=== PATIENT | male | born 1945 | race African-American/Black ===

== ENCOUNTER 2021-06-15 20:12 | Emergency (ER) | payer OTHER ==
[~2021-06-15] VITALS: Ht 175.3 cm; Wt 77.1 kg
[2021-06-15] MEDS ORDERED: KETOROLAC TROMETH 60MG/2ML VIAL IM ONE (21:45)
[2021-06-15] MEDS ORDERED: HYDROcodone-ACET 10/325MG TAB PO ONE (21:45)
[2021-06-15] MEDS ORDERED: cloNIDine HCL 0.1 MG TAB PO ONE (22:00)
[2021-06-16 02:58] VITALS: BP 134/70
== END 2021-06-16 03:01 | disposition home or self-care (01) ==
LOC: EDBD 20:12 → ER 20:12
DX: M51.36 Other intervertebral disc degeneration, lumbar region (principal); G62.9 Polyneuropathy, unspecified; I10 Essential (primary) hypertension; E11.9 Type 2 diabetes mellitus without complications
CPT/HCPCS: 72100; 96372; 99283; J1885

== ENCOUNTER 2021-08-02 21:30 | Emergency (ER) | payer OTHER ==
[~2021-08-02] VITALS: Ht 175.3 cm; Wt 77.1 kg
[2021-08-02 21:58] VITALS: BP 129/71
[2021-08-04] MEDS ORDERED: DEXL30CA4 PO (12:37)
== END 2021-08-03 03:05 | disposition left against medical advice (07) ==
LOC: ER 21:30
DX: R20.2 Paresthesia of skin (principal); Z53.21 Procedure and treatment not carried out due to patient leaving prior to being seen by health care provider

== ENCOUNTER → 2021-08-04 | Emergency (ER) | payer OTHER ==
[~2021-08-04] VITALS: Ht 175.3 cm; Wt 77.1 kg
[~2021-08-04] MED LIST: ALUM & MAG HYDROX-SIMETH LIQ(MAALOX) 30 ML PO ONE; DEXL30CA4 PO; DONNATAL 5ml ORAL Elix (BELLADONNA ALK-PHENOBARB) PO ONE; FAMOTIDINE 20 MG TAB PO ONE; LIDOCAINE VISCOUS 2% 15ML UD PO ONE
[2021-08-04 11:21] LABS: Basophils # (auto) 0.1 10 ^3/uL (0-0.2); Eosinophils # (auto) 0.2 10 ^3/uL (0-0.8); Eosinophils % (auto) 1.8 % (0.0-7.0); Hematocrit 44.4 % (41.0-53.0); Hemoglobin 14.9 g/dL (13.5-17.5); Lymphocytes # (auto) 2.3 10 ^3/uL (0.4-5.4); Lymphocytes % (auto) 21.1 % (10.0-50.0); Mean Corpuscular Hemoglobin 30.5 pg (28.0-32.0); Mean Corpuscular Hgb Conc. 33.5 g/dL (32.0-36.0); Mean Corpuscular Volume 91.1 fL (80.0-100.0); Monocytes # (auto) 0.6 10 ^3/uL (0-1.3); Monocytes % (auto) 5.3 % (0.0-12.0); Neutrophils # (auto) 7.6 10 ^3/uL (1.6-8.6); Neutrophils % (auto) 70.8 % (37.0-80.0); Nucleated Red Blood Cells % 0.2 %; Red Blood Cells 4.88 10^6/uL (4.5-5.90); Red Cell Distribution Width 16.5 % (11.8-14.3); White Blood Cell 10.7 10^3/uL (4.4-10.8)
[2021-08-04 11:34] LABS: Albumin 4.1 g/dL (3.4-5.0); Calcium 8.9 mg/dL (8.5-10.1); Magnesium 2.8 mg/dL (1.6-2.6)
[2021-08-04 11:37] LABS: BUN/Creatinine Ratio 14.1; Bilirubin, Total 0.3 mg/dL (0.2-1.0); Total Protein 7.3 g/dL (6.4-8.2)
[2021-08-04 12:39] VITALS: BP 143/75
== END | disposition home or self-care (01) ==
LOC: ER 10:10
DX: K21.9 Gastro-esophageal reflux disease without esophagitis (principal); N28.1 Cyst of kidney, acquired; I10 Essential (primary) hypertension; E11.9 Type 2 diabetes mellitus without complications; E78.5 Hyperlipidemia, unspecified
CPT/HCPCS: 36415; 76705; 80053; 83690; 83735; 84484; 85025

== ENCOUNTER 2021-09-14 12:10 | Inpatient (IN) | payer OTHER ==
[~2021-09-14] VITALS: Ht 175.3 cm; Wt 65.2 kg
[~2021-09-14 12:10] MED LIST changes: -ALUM & MAG HYDROX-SIMETH LIQ(MAALOX) 30 ML PO ONE; -DONNATAL 5ml ORAL Elix (BELLADONNA ALK-PHENOBARB) PO ONE; -FAMOTIDINE 20 MG TAB PO ONE; -LIDOCAINE VISCOUS 2% 15ML UD PO ONE
[2021-09-14] MEDS ORDERED: MAGNESIUM CITRATE SOLUTION 300 ML BTL PO ONE (13:15)
[2021-09-14] MEDS ORDERED: FLEET ENEMA(ADULT) 135 ML PR ONE (13:15)
[2021-09-14 14:53] LABS: Basophils # (auto) 0.1 10 ^3/uL (0-0.2); Basophils % (auto) 0.7 % (0.0-2.0); Eosinophils # (auto) 0.1 10 ^3/uL (0-0.8); Eosinophils % (auto) 0.8 % (0.0-7.0); Hematocrit 43.7 % (41.0-53.0); Hemoglobin 14.3 g/dL (13.5-17.5); Lymphocytes # (auto) 2.3 10 ^3/uL (0.4-5.4); Lymphocytes % (auto) 28.9 % (10.0-50.0); Mean Corpuscular Hemoglobin 29.7 pg (28.0-32.0); Mean Corpuscular Hgb Conc. 32.7 g/dL (32.0-36.0); Mean Corpuscular Volume 90.6 fL (80.0-100.0); Monocytes # (auto) 0.5 10 ^3/uL (0-1.3); Monocytes % (auto) 5.7 % (0.0-12.0); Neutrophils # (auto) 5.2 10 ^3/uL (1.6-8.6); Neutrophils % (auto) 63.9 % (37.0-80.0); Nucleated Red Blood Cells % 0.1 %; Red Blood Cells 4.83 10^6/uL (4.5-5.90); Red Cell Distribution Width 15.8 % (11.8-14.3); White Blood Cell 8.1 10^3/uL (4.4-10.8)
[2021-09-14 15:10] LABS: Albumin 4.1 g/dL (3.4-5.0); Calcium 9.1 mg/dL (8.5-10.1); Potassium 3.9 mmol/L (3.5-5.1)
[2021-09-14 15:12] LABS: BUN/Creatinine Ratio 14.6; Bilirubin, Total 0.3 mg/dL (0.2-1.0); Total Protein 7.1 g/dL (6.4-8.2)
[2021-09-14] MEDS ORDERED: LACTULOSE 20Gm/30ML SOLN PO PRN (21:15)
[2021-09-14] MEDS ORDERED: ACETAMINOPHEN 325 MG TAB PO PRN (21:15)
[2021-09-14] MEDS ORDERED: DEXTROSE (50%) 50ML SYRG IV PRN (21:15)
[2021-09-14] MEDS ORDERED: HYDROcodone-ACET 5/325MG TAB PO PRN (21:15)
[2021-09-14] MEDS ORDERED: ONDANSETRON HCL 4 MG/2 ML VIAL IV PRN (21:15)
[2021-09-14] MEDS: InsuLIN REG 1unit/0.01ml Soln (100units/ml) SC SCH (22:00)
[2021-09-14] MEDS ORDERED: MORPHINE SULFATE INJ 2 MG/ml SYRG IV PRN (23:30)
[2021-09-14] MEDS ORDERED: NITROGLYCERIN 0.4 MG SL TAB SL PRN (23:30)
[2021-09-15 02:33] VITALS: BP 153/68
[2021-09-15] MEDS ORDERED: ATOR-47 PO (03:04)
[2021-09-15] MEDS ORDERED: DIPH25CA66 PO (03:04)
[2021-09-15] MEDS ORDERED: GABA-339 PO (03:04)
[2021-09-15] MEDS ORDERED: OME20T PO (03:04)
[2021-09-15] MEDS: ACCU-CHEK COMFORT CURVE STRIP VI SCH ×5 (03:17→21:10)
[2021-09-15] MEDS: SODIUM CHLOR 0.9% PF (SALINE LOCK) 10ML VIAL/SYR IV SCH ×4 (03:56→21:12)
[2021-09-15 05:00] VITALS: BP 151/82
[2021-09-15] MEDS: InsuLIN REG 1unit/0.01ml Soln (100units/ml) SC SCH ×4 (06:09→21:10)
[2021-09-15 08:20] VITALS: BP 131/69
[2021-09-15 09:40] LABS: Basophils # (auto) 0.1 10 ^3/uL (0-0.2); Basophils % (auto) 0.8 % (0.0-2.0); Eosinophils # (auto) 0.2 10 ^3/uL (0-0.8); Eosinophils % (auto) 2.4 % (0.0-7.0); Hematocrit 41.9 % (41.0-53.0); Lymphocytes # (auto) 2.4 10 ^3/uL (0.4-5.4); Lymphocytes % (auto) 28.8 % (10.0-50.0); Mean Corpuscular Hemoglobin 30.1 pg (28.0-32.0); Mean Corpuscular Hgb Conc. 33.4 g/dL (32.0-36.0); Mean Corpuscular Volume 89.9 fL (80.0-100.0); Monocytes # (auto) 0.6 10 ^3/uL (0-1.3); Monocytes % (auto) 6.8 % (0.0-12.0); Neutrophils # (auto) 5.1 10 ^3/uL (1.6-8.6); Neutrophils % (auto) 61.2 % (37.0-80.0); Nucleated Red Blood Cells % 0.1 %; Red Blood Cells 4.66 10^6/uL (4.5-5.90); Red Cell Distribution Width 15.9 % (11.8-14.3); White Blood Cell 8.3 10^3/uL (4.4-10.8)
[2021-09-15 09:52] LABS: Albumin 3.9 g/dL (3.4-5.0); Calcium 9.2 mg/dL (8.5-10.1); Potassium 3.7 mmol/L (3.5-5.1)
[2021-09-15 09:57] LABS: BUN/Creatinine Ratio 14.5; Bilirubin, Total 0.4 mg/dL (0.2-1.0); Total Protein 6.8 g/dL (6.4-8.2)
[2021-09-15] MEDS: FAMOTIDINE (10MG/ML) 2ML VL IV SCH ×3 (10:22→21:11)
[2021-09-15] MEDS: ENOXAPARIN SOD 40 MG/0.4 ML SYRINGE SC SCH (10:23)
[2021-09-15 12:20] VITALS: BP 159/77
[2021-09-15 16:20] VITALS: BP 150/71
[2021-09-15] MEDS: GABAPENTIN 300 MG CAP PO SCH ×2 (17:34→21:11)
[2021-09-15] MEDS ORDERED: ATORVASTATIN 20 MG TAB PO SCH (22:00)
[2021-09-15 23:13] VITALS: BP 129/66
[2021-09-16 05:30] VITALS: BP 133/71
[2021-09-16] MEDS: GABAPENTIN 300 MG CAP PO SCH (05:50)
[2021-09-16] MEDS: InsuLIN REG 1unit/0.01ml Soln (100units/ml) SC SCH (05:50)
[2021-09-16] MEDS: SODIUM CHLOR 0.9% PF (SALINE LOCK) 10ML VIAL/SYR IV SCH (05:50)
[2021-09-16] MEDS: ACCU-CHEK COMFORT CURVE STRIP VI SCH (05:51)
[2021-09-16 06:51] LABS: Basophils # (auto) 0.1 10 ^3/uL (0-0.2); Basophils % (auto) 0.8 % (0.0-2.0); Eosinophils # (auto) 0.4 10 ^3/uL (0-0.8); Eosinophils % (auto) 4.9 % (0.0-7.0); Hematocrit 39.1 % (41.0-53.0); Hemoglobin 13.1 g/dL (13.5-17.5); Lymphocytes # (auto) 3.4 10 ^3/uL (0.4-5.4); Lymphocytes % (auto) 43.5 % (10.0-50.0); Mean Corpuscular Hemoglobin 30.6 pg (28.0-32.0); Mean Corpuscular Hgb Conc. 33.4 g/dL (32.0-36.0); Mean Corpuscular Volume 91.4 fL (80.0-100.0); Monocytes # (auto) 0.6 10 ^3/uL (0-1.3); Monocytes % (auto) 7.7 % (0.0-12.0); Neutrophils # (auto) 3.3 10 ^3/uL (1.6-8.6); Neutrophils % (auto) 43.1 % (37.0-80.0); Red Blood Cells 4.28 10^6/uL (4.5-5.90); Red Cell Distribution Width 15.7 % (11.8-14.3); White Blood Cell 7.8 10^3/uL (4.4-10.8)
[2021-09-16 07:08] LABS: BUN/Creatinine Ratio 17.2; Calcium 8.4 mg/dL (8.5-10.1); Potassium 3.6 mmol/L (3.5-5.1)
[2021-09-16 09:07] VITALS: BP 122/61
[2021-09-16] MEDS: FAMOTIDINE (10MG/ML) 2ML VL IV SCH (09:41)
[2021-09-16] MEDS: ENOXAPARIN SOD 40 MG/0.4 ML SYRINGE SC SCH (09:42)
[2021-09-16] MEDS ORDERED: LACT10SO3 PO (10:17)
== END 2021-09-16 12:00 | disposition home or self-care (01) | DRG 392 ==
LOC: ER 12:10 → TELE 23:25 → TELE-WESTW 09-15 02:18
PROVIDERS: ADMIT Nurse Practitioner Family; ATTEND Hospitalist
DX: K59.00 Constipation, unspecified (principal); K21.9 Gastro-esophageal reflux disease without esophagitis; E78.5 Hyperlipidemia, unspecified; E27.8 Other specified disorders of adrenal gland; F02.80 Dementia in other diseases classified elsewhere, unspecified severity, without behavioral disturbance, psychotic disturbance, mood disturbance, and anxiety; G30.9 Alzheimer's disease, unspecified; I10 Essential (primary) hypertension; M43.16 Spondylolisthesis, lumbar region; N28.1 Cyst of kidney, acquired; Z20.822 Contact with and (suspected) exposure to COVID-19; Z79.899 Other long term (current) drug therapy; E11.49 Type 2 diabetes mellitus with other diabetic neurological complication
CPT/HCPCS: 36415; 74176; 80048; 80053; 82962; 83036; 83605; 85025; 96374; G0378; J3490

== ENCOUNTER 2021-09-21 17:12 | Emergency (ER) | payer OTHER ==
[~2021-09-21] VITALS: Ht 175.3 cm; Wt 72.7 kg
[~2021-09-21 17:12] MED LIST changes: +ATOR-47 PO; +DIPH25CA66 PO; +GABA-339 PO; +LACT10SO3 PO; +OME20T PO
[2021-09-21 17:31] VITALS: BP 175/81
[2021-09-21 18:49] LABS: Basophils # (auto) 0 10 ^3/uL (0-0.2); Basophils % (auto) 0.6 % (0.0-2.0); Eosinophils # (auto) 0.1 10 ^3/uL (0-0.8); Eosinophils % (auto) 0.7 % (0.0-7.0); Hematocrit 44.3 % (41.0-53.0); Hemoglobin 14.3 g/dL (13.5-17.5); Lymphocytes # (auto) 2.5 10 ^3/uL (0.4-5.4); Lymphocytes % (auto) 31.5 % (10.0-50.0); Mean Corpuscular Hemoglobin 29.9 pg (28.0-32.0); Mean Corpuscular Hgb Conc. 32.4 g/dL (32.0-36.0); Mean Corpuscular Volume 92.4 fL (80.0-100.0); Monocytes # (auto) 0.5 10 ^3/uL (0-1.3); Monocytes % (auto) 6.6 % (0.0-12.0); Neutrophils # (auto) 4.7 10 ^3/uL (1.6-8.6); Neutrophils % (auto) 60.6 % (37.0-80.0); Nucleated Red Blood Cells % 0.1 %; Red Cell Distribution Width 15.8 % (11.8-14.3); White Blood Cell 7.8 10^3/uL (4.4-10.8)
[2021-09-21 18:57] LABS: Albumin 4.3 g/dL (3.4-5.0); Calcium 9.4 mg/dL (8.5-10.1); Potassium 4.4 mmol/L (3.5-5.1)
[2021-09-21 19:01] LABS: BUN/Creatinine Ratio 11.4; Bilirubin, Total 0.3 mg/dL (0.2-1.0); Total Protein 7.2 g/dL (6.4-8.2)
== END 2021-09-21 23:47 | disposition left against medical advice (07) ==
LOC: EDBD 17:12 → ER 17:12
DX: R07.89 Other chest pain (principal); E11.9 Type 2 diabetes mellitus without complications; K21.9 Gastro-esophageal reflux disease without esophagitis; E78.5 Hyperlipidemia, unspecified; I10 Essential (primary) hypertension
CPT/HCPCS: 36415; 71045; 80053; 83880; 84484; 85025; 93005

== ENCOUNTER 2021-09-26 11:21 | Emergency (ER) | payer OTHER ==
[~2021-09-26] VITALS: Ht 175.3 cm; Wt 70.3 kg
[2021-09-26 12:42] LABS: Urine Bacteria NONE SEEN /hpf (None Seen); Urine Blood Negative /uL (Negative); Urine Specific Gravity 1.019 (1.001-1.035); Urine WBC 38 /hpf (0 - 3)
[2021-09-26 12:44] LABS: Basophils # (auto) 0.1 10 ^3/uL (0-0.2); Basophils % (auto) 0.8 % (0.0-2.0); Eosinophils # (auto) 0.1 10 ^3/uL (0-0.8); Eosinophils % (auto) 1.3 % (0.0-7.0); Hematocrit 43.2 % (41.0-53.0); Hemoglobin 14.1 g/dL (13.5-17.5); Lymphocytes # (auto) 2.5 10 ^3/uL (0.4-5.4); Mean Corpuscular Hemoglobin 30.2 pg (28.0-32.0); Mean Corpuscular Hgb Conc. 32.6 g/dL (32.0-36.0); Mean Corpuscular Volume 92.4 fL (80.0-100.0); Monocytes # (auto) 0.6 10 ^3/uL (0-1.3); Monocytes % (auto) 6.8 % (0.0-12.0); Neutrophils # (auto) 5.1 10 ^3/uL (1.6-8.6); Neutrophils % (auto) 61.1 % (37.0-80.0); Nucleated Red Blood Cells % 0.1 %; Red Blood Cells 4.68 10^6/uL (4.5-5.90); Red Cell Distribution Width 15.8 % (11.8-14.3); White Blood Cell 8.3 10^3/uL (4.4-10.8)
[2021-09-26 13:00] LABS: Albumin 4.2 g/dL (3.4-5.0); Calcium 8.9 mg/dL (8.5-10.1); Potassium 4.3 mmol/L (3.5-5.1)
[2021-09-26 13:04] LABS: BUN/Creatinine Ratio 13.4; Bilirubin, Total 0.5 mg/dL (0.2-1.0); Total Protein 6.6 g/dL (6.4-8.2)
[2021-09-26] MEDS ORDERED: SULF400T11 PO (13:58)
[2021-09-26 14:26] VITALS: BP 135/60
== END 2021-09-26 15:54 | disposition home or self-care (01) ==
LOC: ER 11:21
DX: K59.00 Constipation, unspecified (principal); N39.0 Urinary tract infection, site not specified; M79.10 Myalgia, unspecified site; I10 Essential (primary) hypertension; E11.9 Type 2 diabetes mellitus without complications; K21.9 Gastro-esophageal reflux disease without esophagitis; E78.5 Hyperlipidemia, unspecified; Z79.899 Other long term (current) drug therapy
CPT/HCPCS: 36415; 74018; 80053; 81001; 85025; 93005

== ENCOUNTER 2021-10-01 15:34 | Inpatient (IN) | payer OTHER ==
[~2021-10-01] VITALS: Ht 175.3 cm; Wt 64.5 kg
[~2021-10-01 15:34] MED LIST changes: +SULF400T11 PO
[2021-10-01] MEDS ORDERED: ASPirin 81 mg TAB PO ONE (15:45)
[2021-10-01] MEDS ORDERED: NITROGLYCERIN 0.4 MG SL TAB SL ONE (16:00)
[2021-10-01 16:28] LABS: Basophils # (auto) 0 10 ^3/uL (0-0.2); Basophils % (auto) 0.8 % (0.0-2.0); Eosinophils # (auto) 0 10 ^3/uL (0-0.8); Eosinophils % (auto) 0.3 % (0.0-7.0); Hematocrit 40.1 % (41.0-53.0); Hemoglobin 13.1 g/dL (13.5-17.5); Lymphocytes # (auto) 1.3 10 ^3/uL (0.4-5.4); Lymphocytes % (auto) 21.3 % (10.0-50.0); Mean Corpuscular Hemoglobin 29.9 pg (28.0-32.0); Mean Corpuscular Hgb Conc. 32.7 g/dL (32.0-36.0); Mean Corpuscular Volume 91.5 fL (80.0-100.0); Monocytes # (auto) 0.4 10 ^3/uL (0-1.3); Monocytes % (auto) 5.8 % (0.0-12.0); Neutrophils # (auto) 4.5 10 ^3/uL (1.6-8.6); Neutrophils % (auto) 71.8 % (37.0-80.0); Nucleated Red Blood Cells % 0.1 %; Red Blood Cells 4.38 10^6/uL (4.5-5.90); Red Cell Distribution Width 16.2 % (11.8-14.3); White Blood Cell 6.3 10^3/uL (4.4-10.8)
[2021-10-01 16:44] LABS: INR 0.93 (0.9-1.15); Partial Thromboplastin Time 26.6 sec (24.6-33.4)
[2021-10-01 16:47] LABS: Albumin 3.8 g/dL (3.4-5.0); Calcium 8.3 mg/dL (8.5-10.1); Potassium 3.8 mmol/L (3.5-5.1)
[2021-10-01 16:50] LABS: BUN/Creatinine Ratio 16.7; Bilirubin, Total 0.4 mg/dL (0.2-1.0); Total Protein 5.9 g/dL (6.4-8.2)
[2021-10-01 20:49] LABS: Urine Bacteria NONE SEEN /hpf (None Seen); Urine Blood TRACE /uL (Negative); Urine Specific Gravity 1.009 (1.001-1.035); Urine WBC <1 /hpf (0 - 3)
[2021-10-01] MEDS ORDERED: MORPHINE SULFATE INJ 2 MG/ml SYRG IV PRN (21:00)
[2021-10-01] MEDS ORDERED: ONDANSETRON HCL 4 MG/2 ML VIAL IV PRN (21:00)
[2021-10-01] MEDS ORDERED: NITROGLYCERIN 0.4 MG SL TAB SL PRN (21:00)
[2021-10-01] MEDS ORDERED: ACETAMINOPHEN 325 MG TAB PO PRN (21:00)
[2021-10-01] MEDS ORDERED: DEXTROSE (50%) 50ML SYRG IV PRN (21:00)
[2021-10-01] MEDS: ACCU-CHEK COMFORT CURVE STRIP VI SCH (22:00)
[2021-10-01] MEDS: GABAPENTIN 300 MG CAP PO SCH (22:00)
[2021-10-01] MEDS: InsuLIN REG 1unit/0.01ml Soln (100units/ml) SC SCH (22:00)
[2021-10-01] MEDS: ATORVASTATIN 20 MG TAB PO SCH (22:00)
[2021-10-02] MEDS: GABAPENTIN 300 MG CAP PO SCH ×3 (06:29→22:23)
[2021-10-02] MEDS: InsuLIN REG 1unit/0.01ml Soln (100units/ml) SC SCH ×4 (06:29→22:00)
[2021-10-02] MEDS: ACCU-CHEK COMFORT CURVE STRIP VI SCH ×4 (06:29→22:12)
[2021-10-02 07:01] LABS: Basophils # (auto) 0.1 10 ^3/uL (0-0.2); Basophils % (auto) 0.6 % (0.0-2.0); Eosinophils # (auto) 0.2 10 ^3/uL (0-0.8); Hematocrit 41.6 % (41.0-53.0); Hemoglobin 13.9 g/dL (13.5-17.5); Lymphocytes # (auto) 2.9 10 ^3/uL (0.4-5.4); Lymphocytes % (auto) 35.4 % (10.0-50.0); Mean Corpuscular Hemoglobin 30.8 pg (28.0-32.0); Mean Corpuscular Hgb Conc. 33.3 g/dL (32.0-36.0); Mean Corpuscular Volume 92.5 fL (80.0-100.0); Monocytes # (auto) 0.7 10 ^3/uL (0-1.3); Monocytes % (auto) 8.4 % (0.0-12.0); Neutrophils # (auto) 4.3 10 ^3/uL (1.6-8.6); Neutrophils % (auto) 53.6 % (37.0-80.0); Nucleated Red Blood Cells % 0.3 %; Red Cell Distribution Width 16.3 % (11.8-14.3); White Blood Cell 8.1 10^3/uL (4.4-10.8)
[2021-10-02 07:15] LABS: BUN/Creatinine Ratio 21.5; Calcium 8.7 mg/dL (8.5-10.1); Potassium 4.1 mmol/L (3.5-5.1)
[2021-10-02 09:00] VITALS: BP 152/71
[2021-10-02] MEDS ORDERED: DOCUSATE SOD 100 MG CAP PO ONE (09:00)
[2021-10-02] MEDS ORDERED: ADENOSINE 59 MG in GIVE UN-DILUTED 0 ML IV STA (09:23)
[2021-10-02 10:33] LABS: Cholesterol 175 mg/dL (< 200); HDL Cholesterol 65 mg/dL (40-59); LDL Cholesterol 112 mg/dL (< 100); Triglycerides 68 mg/dL (< 150)
[2021-10-02] MEDS: PANTOPRAZOLE 40 MG TAB PO SCH (11:09)
[2021-10-02] MEDS: LISINOPRIL 20 MG TAB PO SCH (11:09)
[2021-10-02] MEDS: ASPirin 81 mg TAB PO SCH (11:09)
[2021-10-02] MEDS: ENOXAPARIN SOD 40 MG/0.4 ML SYRINGE SC SCH (11:10)
[2021-10-02] MEDS ORDERED: ACET-1158 PO (12:39)
[2021-10-02] MEDS ORDERED: FOLI1TAB6 PO (12:39)
[2021-10-02] MEDS ORDERED: LISI40TA11 PO (12:39)
[2021-10-02] MEDS ORDERED: ALPH50TA PO (12:39)
[2021-10-02 13:00] VITALS: BP 132/67
[2021-10-02 13:58] LABS: Alcohol, Urine < 3.0 mg/dL (0-10); Amphetamine Screen, Urine NEGATIVE (NEGATIVE); Barbiturate Scree,Urine NEGATIVE (NEGATIVE); Benzodiazephine Screen, Urine NEGATIVE (NEGATIVE); Cannabinoid Screen, Urine NEGATIVE (NEGATIVE); Cocaine Screen, Urine NEGATIVE (NEGATIVE); Opiate Scree,Urine NEGATIVE (NEGATIVE); Phencyclidine Screen, Urine NEGATIVE (NEGATIVE)
[2021-10-02 15:42] VITALS: BP 152/71
[2021-10-02 17:00] VITALS: BP_SYST 139; BP_SYST 151; BP_DIAS 69; BP_DIAS 76
[2021-10-02 21:24] VITALS: BP 121/56
[2021-10-02] MEDS: ATORVASTATIN 20 MG TAB PO SCH (22:23)
[2021-10-02] MEDS: DOCUSATE SOD 100 MG CAP PO PRN (22:24)
[2021-10-02] MEDS: TEMAZEPAM 15 MG CAP PO PRN (23:27)
[2021-10-03 05:00] VITALS: BP 143/70
[2021-10-03] MEDS: ACCU-CHEK COMFORT CURVE STRIP VI SCH ×4 (06:44→22:35)
[2021-10-03] MEDS: InsuLIN REG 1unit/0.01ml Soln (100units/ml) SC SCH ×4 (06:44→22:25)
[2021-10-03] MEDS: GABAPENTIN 300 MG CAP PO SCH ×3 (06:44→22:35)
[2021-10-03] MEDS: ENOXAPARIN SOD 40 MG/0.4 ML SYRINGE SC SCH (09:01)
[2021-10-03 09:02] VITALS: BP 138/74
[2021-10-03 10:20] LABS: Basophils # (auto) 0.1 10 ^3/uL (0-0.2); Basophils % (auto) 0.8 % (0.0-2.0); Eosinophils # (auto) 0.2 10 ^3/uL (0-0.8); Hematocrit 40.9 % (41.0-53.0); Hemoglobin 13.2 g/dL (13.5-17.5); Lymphocytes # (auto) 1.8 10 ^3/uL (0.4-5.4); Lymphocytes % (auto) 23.8 % (10.0-50.0); Mean Corpuscular Hemoglobin 29.8 pg (28.0-32.0); Mean Corpuscular Hgb Conc. 32.4 g/dL (32.0-36.0); Mean Corpuscular Volume 91.8 fL (80.0-100.0); Monocytes # (auto) 0.6 10 ^3/uL (0-1.3); Monocytes % (auto) 7.5 % (0.0-12.0); Neutrophils # (auto) 4.9 10 ^3/uL (1.6-8.6); Neutrophils % (auto) 65.9 % (37.0-80.0); Nucleated Red Blood Cells % 0.1 %; Red Blood Cells 4.45 10^6/uL (4.5-5.90); White Blood Cell 7.5 10^3/uL (4.4-10.8)
[2021-10-03 10:36] LABS: INR 0.92 (0.9-1.15); Partial Thromboplastin Time 26.7 sec (24.6-33.4)
[2021-10-03 10:52] LABS: Calcium 8.5 mg/dL (8.5-10.1); Potassium 3.8 mmol/L (3.5-5.1)
[2021-10-03 10:53] LABS: BUN/Creatinine Ratio 19.6
[2021-10-03] MEDS: PANTOPRAZOLE 40 MG TAB PO SCH (11:29)
[2021-10-03] MEDS: ASPirin 81 mg TAB PO SCH (11:29)
[2021-10-03] MEDS: LISINOPRIL 20 MG TAB PO SCH (11:29)
[2021-10-03] MEDS ORDERED: fentaNYL CITRATE 100 MCG/2 ML VL ONE (16:13)
[2021-10-03] MEDS ORDERED: ANGIOMAX 250 MG VIAL IV ONE (16:13)
[2021-10-03] MEDS ORDERED: VERAPAMIL 2.5MG/ML INJ 2ML VIAL IV ONE (16:13)
[2021-10-03] MEDS ORDERED: HEPARIN SODIUM (PORCINE) 5000 UNITS/ML 1ML VIAL ONE (16:13)
[2021-10-03] MEDS ORDERED: MIDAZOLAM HCL 2MG/2ML 2ml VIAL (1mg/ml) ONE (16:14)
[2021-10-03] MEDS ORDERED: SODIUM CHL 0.9% 0 ML ONE (16:14)
[2021-10-03] MEDS ORDERED: LIDOCAINE 2%HCL (LOCAL ANESTH.) INJ 10ml MDV ONE (16:23)
[2021-10-03] MEDS ORDERED: IODIXANOL 320MG/ML 100ML BTL IV ONE (16:23)
[2021-10-03] MEDS ORDERED: diphenhdrAMINE HCL 50 MG/1 ML VL ONE (16:37)
[2021-10-03 21:23] VITALS: BP 146/71
[2021-10-03] MEDS: ATORVASTATIN 20 MG TAB PO SCH (22:35)
[2021-10-03] MEDS: TEMAZEPAM 15 MG CAP PO PRN (23:26)
[2021-10-04 05:57] VITALS: BP 124/69
[2021-10-04] MEDS: GABAPENTIN 300 MG CAP PO SCH ×3 (06:06→21:47)
[2021-10-04] MEDS: ACCU-CHEK COMFORT CURVE STRIP VI SCH ×4 (06:06→23:59)
[2021-10-04] MEDS: InsuLIN REG 1unit/0.01ml Soln (100units/ml) SC SCH ×4 (06:06→21:48)
[2021-10-04] MEDS: PANTOPRAZOLE 40 MG TAB PO SCH (08:50)
[2021-10-04] MEDS: LISINOPRIL 20 MG TAB PO SCH (08:50)
[2021-10-04] MEDS: ASPirin 81 mg TAB PO SCH (08:51)
[2021-10-04] MEDS: ENOXAPARIN SOD 40 MG/0.4 ML SYRINGE SC SCH (08:51)
[2021-10-04] MEDS: DOCUSATE SOD 100 MG CAP PO PRN (11:46)
[2021-10-04] MEDS ORDERED: MILK OF MAGNESIA 30ML SUSP PO PRN (15:15)
[2021-10-04] MEDS ORDERED: POLYETHYLENE GLYCOL 17 GM PWDR PO PRN (17:45)
[2021-10-04] MEDS ORDERED: BISACODYL 5 MG EC TAB PO PRN (17:45)
[2021-10-04] MEDS: ATORVASTATIN 20 MG TAB PO SCH (21:47)
[2021-10-04 22:00] VITALS: BP 116/62
[2021-10-04] MEDS: TEMAZEPAM 15 MG CAP PO PRN (23:59)
[2021-10-05 05:00] VITALS: BP 114/65
[2021-10-05] MEDS: InsuLIN REG 1unit/0.01ml Soln (100units/ml) SC SCH ×2 (06:34→11:30)
[2021-10-05] MEDS: ACCU-CHEK COMFORT CURVE STRIP VI SCH ×2 (06:34→12:15)
[2021-10-05] MEDS: GABAPENTIN 300 MG CAP PO SCH (06:34)
[2021-10-05 06:35] LABS: Calcium 8.4 mg/dL (8.5-10.1); Potassium 4.1 mmol/L (3.5-5.1)
[2021-10-05 06:37] LABS: BUN/Creatinine Ratio 21.8
[2021-10-05] MEDS ORDERED: ASPI-498 PO (07:27)
[2021-10-05 08:01] VITALS: BP 126/78
[2021-10-05 08:27] VITALS: BP 103/59
[2021-10-05] MEDS ORDERED: FLEET ENEMA(ADULT) 135 ML PR ONE (09:30)
[2021-10-05] MEDS ORDERED: BISACODYL 5 MG EC TAB PO ONE (09:30)
[2021-10-05] MEDS: ENOXAPARIN SOD 40 MG/0.4 ML SYRINGE SC SCH (09:43)
[2021-10-05] MEDS: PANTOPRAZOLE 40 MG TAB PO SCH (09:43)
[2021-10-05] MEDS: ASPirin 81 mg TAB PO SCH (09:43)
[2021-10-05] MEDS: LISINOPRIL 20 MG TAB PO SCH (09:44)
[2021-10-05 10:27] VITALS: BP 109/53
== END 2021-10-05 13:06 | disposition home or self-care (01) | DRG 286 ==
LOC: EDBD 15:34 → ER 15:34 → TELE 21:04 → TELE-WESTW 10-02 07:45
PROVIDERS: ADMIT Nurse Practitioner; ATTEND Internal Medicine
PROC: 4A023N7 Measurement of Cardiac Sampling and Pressure, Left Heart, Percutaneous Approach (ICD-10-PCS; principal; 2021-10-03)
PROC: B211YZZ Fluoroscopy of Multiple Coronary Arteries using Other Contrast (ICD-10-PCS; 2021-10-03)
PROC: B215YZZ Fluoroscopy of Left Heart using Other Contrast (ICD-10-PCS; 2021-10-03)
PROC: 4A033BC Measurement of Arterial Pressure, Coronary, Percutaneous Approach (ICD-10-PCS; 2021-10-03)
DX: I25.110 Atherosclerotic heart disease of native coronary artery with unstable angina pectoris (principal); I50.21 Acute systolic (congestive) heart failure; E11.9 Type 2 diabetes mellitus without complications; E78.5 Hyperlipidemia, unspecified; Z20.822 Contact with and (suspected) exposure to COVID-19; F02.80 Dementia in other diseases classified elsewhere, unspecified severity, without behavioral disturbance, psychotic disturbance, mood disturbance, and anxiety; G30.9 Alzheimer's disease, unspecified; H91.90 Unspecified hearing loss, unspecified ear; I11.0 Hypertensive heart disease with heart failure; K59.00 Constipation, unspecified; I11.9 Hypertensive heart disease without heart failure; Z79.84 Long term (current) use of oral hypoglycemic drugs; Z82.49 Family history of ischemic heart disease and other diseases of the circulatory system; Z88.2 Allergy status to sulfonamides; Z72.0 Tobacco use
CPT/HCPCS: 36415; 71045; 78452; 80048; 80053; 80061; 80307; 81001; 82962; 83880; 84443; 84484; 85025; 85610; 85730; 93005; 93017; 93306; 93458; 93571; 96365; 96375; 99152; 99153; 99291; A4565; G0378; J0153; J1815; J2001; J2250; J2405; Q9967

== ENCOUNTER 2021-11-01 14:14 | Emergency (ER) | payer OTHER ==
[~2021-11-01] VITALS: Ht 162.6 cm; Wt 60.0 kg
[~2021-11-01 14:14] MED LIST changes: +ACET-1158 PO; +ALPH50TA PO; +ASPI-498 PO; -DEXL30CA4 PO; -DIPH25CA66 PO; +FOLI1TAB6 PO; -LACT10SO3 PO; +LISI40TA11 PO; -SULF400T11 PO
[2021-11-01] MEDS ORDERED: SODIUM CHLORIDE 0.9% 1,000 ML IV ONE (14:30)
[2021-11-01] MEDS ORDERED: ASPirin 81 mg TAB PO ONE (14:30)
[2021-11-01 15:10] LABS: Basophils # (auto) 0 10 ^3/uL (0-0.2); Basophils % (auto) 0.5 % (0.0-2.0); Eosinophils # (auto) 0.1 10 ^3/uL (0-0.8); Eosinophils % (auto) 1.2 % (0.0-7.0); Hematocrit 42.1 % (41.0-53.0); Hemoglobin 13.7 g/dL (13.5-17.5); Lymphocytes # (auto) 2.5 10 ^3/uL (0.4-5.4); Mean Corpuscular Hemoglobin 30.4 pg (28.0-32.0); Mean Corpuscular Hgb Conc. 32.5 g/dL (32.0-36.0); Mean Corpuscular Volume 93.3 fL (80.0-100.0); Monocytes # (auto) 0.6 10 ^3/uL (0-1.3); Monocytes % (auto) 6.6 % (0.0-12.0); Neutrophils # (auto) 5.7 10 ^3/uL (1.6-8.6); Neutrophils % (auto) 63.7 % (37.0-80.0); Nucleated Red Blood Cells % 0.1 %; Red Blood Cells 4.52 10^6/uL (4.5-5.90); Red Cell Distribution Width 16.3 % (11.8-14.3); White Blood Cell 8.9 10^3/uL (4.4-10.8)
[2021-11-01 15:27] LABS: Albumin 4.1 g/dL (3.4-5.0); BUN/Creatinine Ratio 22.2; Calcium 9.2 mg/dL (8.5-10.1); Magnesium 2.5 mg/dL (1.6-2.6); Potassium 3.9 mmol/L (3.5-5.1)
[2021-11-01 15:30] LABS: Bilirubin, Total 0.3 mg/dL (0.2-1.0); Total Protein 6.7 g/dL (6.4-8.2)
[2021-11-01 20:52] VITALS: BP 108/68
== END 2021-11-01 20:55 | disposition home or self-care (01) ==
LOC: ER 14:14 → EDBD 14:14 → ER 20:54
DX: R07.9 Chest pain, unspecified (principal); I10 Essential (primary) hypertension; E11.9 Type 2 diabetes mellitus without complications; K21.9 Gastro-esophageal reflux disease without esophagitis; E78.5 Hyperlipidemia, unspecified; Z79.82 Long term (current) use of aspirin; Z79.899 Other long term (current) drug therapy; Z88.2 Allergy status to sulfonamides
CPT/HCPCS: 36415; 71045; 80053; 83735; 84484; 85025; 85379; 93005; 96360; 96361; 99285; J7030

== ENCOUNTER 2021-11-09 00:06 | Emergency (ER) | payer OTHER | END 2021-11-09 00:27 | disposition left against medical advice (07) | LOC: ER 00:10 | DX: K59.00 Constipation, unspecified (principal); Z53.21 Procedure and treatment not carried out due to patient leaving prior to being seen by health care provider ==

== ENCOUNTER 2021-11-13 20:21 | Inpatient (IN) | payer OTHER ==
[~2021-11-13] VITALS: Ht 175.3 cm; Wt 66.7 kg
[2021-11-13 21:59] LABS: Basophils # (auto) 0.1 10 ^3/uL (0-0.2); Basophils % (auto) 0.6 % (0.0-2.0); Eosinophils # (auto) 0.2 10 ^3/uL (0-0.8); Eosinophils % (auto) 2.1 % (0.0-7.0); Hemoglobin 14.6 g/dL (13.5-17.5); Lymphocytes # (auto) 3.1 10 ^3/uL (0.4-5.4); Lymphocytes % (auto) 27.9 % (10.0-50.0); Mean Corpuscular Hemoglobin 29.8 pg (28.0-32.0); Mean Corpuscular Hgb Conc. 31.7 g/dL (32.0-36.0); Mean Corpuscular Volume 93.9 fL (80.0-100.0); Monocytes # (auto) 0.9 10 ^3/uL (0-1.3); Monocytes % (auto) 8.3 % (0.0-12.0); Neutrophils # (auto) 6.8 10 ^3/uL (1.6-8.6); Neutrophils % (auto) 61.1 % (37.0-80.0); Nucleated Red Blood Cells % 0.1 %; Red Cell Distribution Width 16.3 % (11.8-14.3); White Blood Cell 11.1 10^3/uL (4.4-10.8)
[2021-11-13 22:18] LABS: Albumin 4.4 g/dL (3.4-5.0); BUN/Creatinine Ratio 18.9; Calcium 9.1 mg/dL (8.5-10.1)
[2021-11-13 22:21] LABS: Bilirubin, Total 0.3 mg/dL (0.2-1.0); Total Protein 7.6 g/dL (6.4-8.2)
[2021-11-14 09:04] LABS: Urine Bacteria NONE SEEN /hpf (None Seen); Urine Blood Negative /uL (Negative); Urine Specific Gravity 1.014 (1.001-1.035); Urine WBC <1 /hpf (0 - 3)
[2021-11-14 09:13] LABS: Basophils # (auto) 0.1 10 ^3/uL (0-0.2); Basophils % (auto) 0.7 % (0.0-2.0); Eosinophils # (auto) 0.2 10 ^3/uL (0-0.8); Eosinophils % (auto) 2.2 % (0.0-7.0); Hemoglobin 13.2 g/dL (13.5-17.5); Lymphocytes # (auto) 2.2 10 ^3/uL (0.4-5.4); Mean Corpuscular Hemoglobin 30.1 pg (28.0-32.0); Mean Corpuscular Hgb Conc. 32.2 g/dL (32.0-36.0); Mean Corpuscular Volume 93.3 fL (80.0-100.0); Monocytes # (auto) 0.6 10 ^3/uL (0-1.3); Monocytes % (auto) 6.7 % (0.0-12.0); Neutrophils % (auto) 66.4 % (37.0-80.0); Nucleated Red Blood Cells % 0.1 %; Red Cell Distribution Width 15.7 % (11.8-14.3)
[2021-11-14 09:28] LABS: BUN/Creatinine Ratio 21.9; Calcium 8.7 mg/dL (8.5-10.1); Potassium 4.3 mmol/L (3.5-5.1)
[2021-11-14] MEDS ORDERED: NITROGLYCERIN 0.4 MG SL TAB SL PRN (09:30)
[2021-11-14] MEDS ORDERED: MORPHINE SULFATE INJ 2 MG/ml SYRG IV PRN (09:30)
[2021-11-14] MEDS: ENOXAPARIN SOD 40 MG/0.4 ML SYRINGE SC SCH (09:51)
[2021-11-14] MEDS: LISINOPRIL 20 MG TAB PO SCH (09:51)
[2021-11-14] MEDS: PANTOPRAZOLE 40 MG TAB PO SCH (09:51)
[2021-11-14] MEDS ORDERED: hydrALAZINE HCL 20 MG/ML VL IV PRN (10:00)
[2021-11-14] MEDS ORDERED: PATIENTS OWN MEDICATION (Lisinopril 0.5 TAB) PO SCH (10:00)
[2021-11-14] MEDS ORDERED: OMEPRAZOLE 20MG/10ML ORAL SUSP PO SCH (10:00)
[2021-11-14] MEDS: NICOTINE 7MG/24HR TOPICAL PATCH TD SCH (10:50)
[2021-11-14] MEDS: SOD CHL 0.45% 1,000 ML IV SCH (10:58)
[2021-11-14] MEDS: GABAPENTIN 300 MG CAP PO SCH ×2 (13:03→22:21)
[2021-11-14] MEDS ORDERED: PATIENTS OWN MEDICATION (Gabapentin 1 TAB) PO SCH (14:00)
[2021-11-14] MEDS ORDERED: POM (21:04)
[2021-11-14 22:00] VITALS: BP 155/68
[2021-11-14] MEDS ORDERED: PATIENTS OWN MEDICATION (Atorvastatin Calcium 1 TAB) PO SCH (22:00)
[2021-11-14] MEDS: ATORVASTATIN 20 MG TAB PO SCH (22:22)
[2021-11-14] MEDS: ACETAMINOPHEN 325 MG TAB PO PRN (22:22)
[2021-11-14 22:43] LABS: Folate (Folic Acid) 13.72 ng/mL (5.38-24)
[2021-11-15 05:00] VITALS: BP 125/63
[2021-11-15] MEDS: ASPirin-EC 81 mg tab PO SCH (05:28)
[2021-11-15] MEDS: GABAPENTIN 300 MG CAP PO SCH ×4 (05:30→21:23)
[2021-11-15] MEDS: SOD CHL 0.45% 1,000 ML IV SCH ×2 (06:20→12:40)
[2021-11-15 07:03] LABS: Basophils # (auto) 0.1 10 ^3/uL (0-0.2); Eosinophils # (auto) 0.2 10 ^3/uL (0-0.8); Eosinophils % (auto) 2.1 % (0.0-7.0); Lymphocytes # (auto) 2.4 10 ^3/uL (0.4-5.4); Lymphocytes % (auto) 29.2 % (10.0-50.0); Mean Corpuscular Hemoglobin 31.1 pg (28.0-32.0); Mean Corpuscular Hgb Conc. 33.4 g/dL (32.0-36.0); Monocytes # (auto) 0.7 10 ^3/uL (0-1.3); Monocytes % (auto) 8.6 % (0.0-12.0); Neutrophils # (auto) 4.8 10 ^3/uL (1.6-8.6); Neutrophils % (auto) 59.1 % (37.0-80.0); Nucleated Red Blood Cells % 0.1 %; Red Blood Cells 4.19 10^6/uL (4.5-5.90); Red Cell Distribution Width 15.5 % (11.8-14.3); White Blood Cell 8.2 10^3/uL (4.4-10.8)
[2021-11-15 07:10] LABS: Calcium 8.4 mg/dL (8.5-10.1)
[2021-11-15 07:15] LABS: Albumin 3.5 g/dL (3.4-5.0); BUN/Creatinine Ratio 24.6; Bilirubin, Total 0.3 mg/dL (0.2-1.0); Total Protein 6.2 g/dL (6.4-8.2)
[2021-11-15 09:00] VITALS: BP 145/75
[2021-11-15] MEDS ORDERED: CYANOCOBALAMIN (B-12) 1000 MCG/1 ML VIAL IM ONE (09:30)
[2021-11-15] MEDS: NICOTINE 7MG/24HR TOPICAL PATCH TD SCH (10:00)
[2021-11-15] MEDS: PANTOPRAZOLE 40 MG TAB PO SCH (10:50)
[2021-11-15] MEDS: CYANOCOBALAMIN 500 MCG TAB PO SCH (10:52)
[2021-11-15] MEDS: ENOXAPARIN SOD 40 MG/0.4 ML SYRINGE SC SCH (10:52)
[2021-11-15] MEDS: FEXOFENADINE HCL 60 MG TAB PO SCH ×2 (10:52→21:24)
[2021-11-15] MEDS: clonazePAM 0.5 MG TAB PO SCH (10:53)
[2021-11-15] MEDS: LISINOPRIL 20 MG TAB PO SCH (10:54)
[2021-11-15 13:00] VITALS: BP 145/75
[2021-11-15 16:56] VITALS: BP 113/67
[2021-11-15] MEDS: ATORVASTATIN 20 MG TAB PO SCH (21:24)
[2021-11-15 21:31] VITALS: BP 145/63
[2021-11-16 04:30] VITALS: BP 125/67
[2021-11-16] MEDS: SOD CHL 0.45% 1,000 ML IV SCH ×2 (05:08→16:34)
[2021-11-16] MEDS: GABAPENTIN 300 MG CAP PO SCH ×3 (06:04→22:33)
[2021-11-16] MEDS: ASPirin-EC 81 mg tab PO SCH (06:04)
[2021-11-16 09:00] VITALS: BP 103/61
[2021-11-16] MEDS: clonazePAM 0.5 MG TAB PO SCH (09:49)
[2021-11-16] MEDS: FEXOFENADINE HCL 60 MG TAB PO SCH (09:50)
[2021-11-16] MEDS: PANTOPRAZOLE 40 MG TAB PO SCH (09:51)
[2021-11-16] MEDS: CYANOCOBALAMIN 500 MCG TAB PO SCH (09:57)
[2021-11-16] MEDS: ENOXAPARIN SOD 40 MG/0.4 ML SYRINGE SC SCH (09:58)
[2021-11-16] MEDS: LISINOPRIL 20 MG TAB PO SCH (10:00)
[2021-11-16] MEDS: NICOTINE 7MG/24HR TOPICAL PATCH TD SCH (10:01)
[2021-11-16 13:00] VITALS: BP 113/59
[2021-11-16 17:00] VITALS: BP 113/65
[2021-11-16] MEDS ORDERED: FEXOFENADINE HCL 60 MG TAB PO PRN (19:45)
[2021-11-16 22:00] VITALS: BP 133/81
[2021-11-16] MEDS: ATORVASTATIN 20 MG TAB PO SCH (22:33)
[2021-11-17] MEDS: SOD CHL 0.45% 1,000 ML IV SCH ×2 (04:40→18:00)
[2021-11-17 04:56] VITALS: BP 125/67
[2021-11-17] MEDS: GABAPENTIN 300 MG CAP PO SCH ×3 (06:29→22:03)
[2021-11-17] MEDS: ASPirin-EC 81 mg tab PO SCH (06:29)
[2021-11-17 09:00] VITALS: BP 115/53
[2021-11-17] MEDS: clonazePAM 0.5 MG TAB PO SCH (09:54)
[2021-11-17] MEDS: PANTOPRAZOLE 40 MG TAB PO SCH (09:54)
[2021-11-17] MEDS: LISINOPRIL 20 MG TAB PO SCH (09:54)
[2021-11-17] MEDS: CYANOCOBALAMIN 500 MCG TAB PO SCH (09:54)
[2021-11-17] MEDS: NICOTINE 7MG/24HR TOPICAL PATCH TD SCH (10:00)
[2021-11-17] MEDS: ENOXAPARIN SOD 40 MG/0.4 ML SYRINGE SC SCH (10:03)
[2021-11-17] MEDS: ACETAMINOPHEN 325 MG TAB PO PRN ×2 (10:13→22:04)
[2021-11-17] MEDS ORDERED: CLON0.5T10 PO (11:05)
[2021-11-17] MEDS ORDERED: CYAN-17 PO (11:05)
[2021-11-17 13:00] VITALS: BP 98/59
[2021-11-17 16:00] VITALS: BP 121/59
[2021-11-17 22:00] VITALS: BP 112/62
[2021-11-17] MEDS: ATORVASTATIN 20 MG TAB PO SCH (22:03)
[2021-11-18 05:00] VITALS: BP 121/60
[2021-11-18] MEDS: ASPirin-EC 81 mg tab PO SCH (05:42)
[2021-11-18] MEDS: GABAPENTIN 300 MG CAP PO SCH ×2 (05:42→14:51)
[2021-11-18] MEDS: SOD CHL 0.45% 1,000 ML IV SCH (05:42)
[2021-11-18 09:00] VITALS: BP 109/62
[2021-11-18] MEDS: NICOTINE 7MG/24HR TOPICAL PATCH TD SCH (10:00)
[2021-11-18] MEDS: LISINOPRIL 20 MG TAB PO SCH (10:00)
[2021-11-18] MEDS: clonazePAM 0.5 MG TAB PO SCH (10:11)
[2021-11-18] MEDS: PANTOPRAZOLE 40 MG TAB PO SCH (10:11)
[2021-11-18] MEDS: CYANOCOBALAMIN 500 MCG TAB PO SCH (10:11)
[2021-11-18] MEDS: ENOXAPARIN SOD 40 MG/0.4 ML SYRINGE SC SCH (10:12)
== END 2021-11-18 18:30 | disposition home or self-care (01) | DRG 69 ==
LOC: ER 20:22 → TELE 11-14 09:34 → TELE-EAST 11-14 18:22 → TELE-WESTW 11-16 19:21
PROVIDERS: ADMIT Registered Nurse; ATTEND Family Medicine
DX: G45.9 Transient cerebral ischemic attack, unspecified (principal); G93.41 Metabolic encephalopathy; I10 Essential (primary) hypertension; E78.00 Pure hypercholesterolemia, unspecified; F02.80 Dementia in other diseases classified elsewhere, unspecified severity, without behavioral disturbance, psychotic disturbance, mood disturbance, and anxiety; F17.200 Nicotine dependence, unspecified, uncomplicated; G30.9 Alzheimer's disease, unspecified; E11.42 Type 2 diabetes mellitus with diabetic polyneuropathy; F41.9 Anxiety disorder, unspecified; K21.9 Gastro-esophageal reflux disease without esophagitis; Z20.822 Contact with and (suspected) exposure to COVID-19; J30.9 Allergic rhinitis, unspecified; I25.10 Atherosclerotic heart disease of native coronary artery without angina pectoris; H91.90 Unspecified hearing loss, unspecified ear; Z79.82 Long term (current) use of aspirin; Z79.899 Other long term (current) drug therapy; Z82.3 Family history of stroke; Z82.49 Family history of ischemic heart disease and other diseases of the circulatory system; Z83.3 Family history of diabetes mellitus; Z88.2 Allergy status to sulfonamides; Z86.73 Personal history of transient ischemic attack (TIA), and cerebral infarction without residual deficits
CPT/HCPCS: 36415; 70450; 70551; 71045; 80048; 80053; 81001; 82607; 82746; 83090; 83880; 84484; 85025; 87205; 93005; 93886; 95819; 96360; 96372; 97110; 97116; 97163; 97530; G0378